=== PATIENT | female | born 1985 | race African-American/Black ===

== ENCOUNTER 2023-11-20 12:41 | Emergency (ER) | payer MEDICAID ==
[~2023-11-20] VITALS: Ht 170.2 cm; Wt 133.0 kg
[2023-11-20 13:07] VITALS: TEMP 97.9
[2023-11-20 14:40] LABS: BASOPHILS # (AUTO) 0.1 X10'3 (0-0.2); BASOPHILS % (AUTO) 0.8 % (0-1); EOSINOPHILS # (AUTO) 0.3 X10'3 (0-0.9); EOSINOPHILS % (AUTO) 3.6 % (0-6); HEMATOCRIT 29.9 % (35.0-45.0); HEMOGLOBIN 9.1 g/dl (12.0-16.0); LYMPHOCYTES # (AUTO) 2.4 X10'3 (1.1-4.8); LYMPHOCYTES % (AUTO) 29.1 % (21-51); MEAN CORPUSCULAR HEMOGLOBIN 20.5 PG (27.0-31.0); MEAN CORPUSCULAR HGB CONC 30.3 g/dL (33.0-36.5); MEAN CORPUSCULAR VOLUME 67.8 FL (78-98); MEAN PLATELET VOLUME 6.9 FL (7.4-10.4); MONOCYTES # (AUTO) 0.7 X10'3 (0-0.9); MONOCYTES % (AUTO) 8.7 % (2-12); NEUTROPHILS # (AUTO) 4.8 X10'3 (1.8-7.7); NEUTROPHILS % (AUTO) 57.8 % (42-75); PLATELET COUNT 373 X10'3 (140-440); RED BLOOD COUNT 4.42 X10'6 (4.20-5.60); RED CELL DISTRIBUTION WIDTH 18.5 % (11.5-14.5); WHITE BLOOD COUNT 8.4 X10'3 (4.5-11.0)
[2023-11-20 14:59] LABS: ANISOCYTOSIS 2+; ELLIPTOCYTES FEW; MICROCYTOSIS 2+; PLATELET ESTIMATE NORMAL
[2023-11-20 15:00] LABS: POLYCHROMASIA FEW; STOMATOCYTES FEW
[2023-11-20 15:14] LABS: ALANINE AMINOTRANSFERASE 58 U/L (12-78); ALBUMIN 3.3 G/DL (3.4-5.0); ALBUMIN/GLOBULIN RATIO 0.7 (1.1-1.5); ALKALINE PHOSPHATASE 78 IU/L (46-116); ANION GAP 9 (8-16); ASPARTATE AMINO TRANSFERASE 47 U/L (10-37); BILIRUBIN,TOTAL 0.5 MG/DL (0.1-1.0); BLOOD UREA NITROGEN 11 MG/DL (7-18); BUN/CREATININE RATIO 13.8 (10.0-20.0); CALCIUM 9.2 MG/DL (8.5-10.1); CHLORIDE 107 MMOL/L (99-107); GLUCOSE 114 MG/DL (70-104); SODIUM 143 MMOL/L (135-145); TOTAL CARBON DIOXIDE 27.5 MMOL/L (24-32); TOTAL PROTEIN 7.8 G/DL (6.4-8.2); eCRCL 95 ML/MIN; eGFR 81 ML/MIN
[2023-11-20 15:30] LABS: PRO BRAIN NATRIURETIC PEPTIDE < 30 PG/ML (0-125)
[2023-11-20 15:55] LABS: FREE T4 (FREE THYROXINE) 0.77 NG/DL (0.73-1.40); THYROID STIMULATING HORMONE 3.16 ulU/ml (0.34-4.50)
[2023-11-20] MEDS ORDERED: LEVO25TA2 PO (16:36)
[2023-11-20 17:07] VITALS: BP 138/91; PULSE 77; RESP 18; O2SAT 98
[2023-11-26] MEDS ORDERED: NO HOME MEDS (15:44)
[2023-11-29] MEDS ORDERED: FERR324T3 PO (10:11)
[2023-11-29] MEDS ORDERED: APIX5TAB3 PO (11:32)
== END 2023-11-20 17:10 | disposition home or self-care (01) ==
LOC: ER 12:42
DX: E03.9 Hypothyroidism, unspecified (principal)
CPT/HCPCS: 36415; 71045; 80053; 83735; 83880; 84439; 84443; 84484; 85008; 85025; 93005; 99285

== ENCOUNTER 2023-11-29 22:36 | Emergency (ER) | payer MEDICAID ==
[~2023-11-29] VITALS: Ht 170.2 cm; Wt 143.2 kg
[~2023-11-29 22:36] MED LIST: APIX5TAB3 PO; FERR324T3 PO; NO HOME MEDS
[2023-11-30 00:05] LABS: BASOPHILS % (AUTO) 0.5 % (0-1); EOSINOPHILS # (AUTO) 0.2 X10'3 (0-0.9); HEMATOCRIT 28.2 % (35.0-45.0); HEMOGLOBIN 8.7 g/dl (12.0-16.0); LYMPHOCYTES # (AUTO) 2.4 X10'3 (1.1-4.8); LYMPHOCYTES % (AUTO) 29.8 % (21-51); MEAN CORPUSCULAR HEMOGLOBIN 21.9 PG (27.0-31.0); MEAN CORPUSCULAR HGB CONC 30.9 g/dL (33.0-36.5); MEAN PLATELET VOLUME 7.6 FL (7.4-10.4); MONOCYTES # (AUTO) 0.6 X10'3 (0-0.9); NEUTROPHILS # (AUTO) 4.8 X10'3 (1.8-7.7); NEUTROPHILS % (AUTO) 59.7 % (42-75); PLATELET COUNT 328 X10'3 (140-440); RED BLOOD COUNT 3.97 X10'6 (4.20-5.60); RED CELL DISTRIBUTION WIDTH 19.6 % (11.5-14.5)
[2023-11-30 00:37] LABS: ALBUMIN 3.1 G/DL (3.4-5.0); ANION GAP 11 (8-16); BLOOD UREA NITROGEN 5 MG/DL (7-18); BUN/CREATININE RATIO 6.4 (10.0-20.0); CALCIUM 8.6 MG/DL (8.5-10.1); CHLORIDE 106 MMOL/L (99-107); CREATININE 0.78 MG/DL (0.40-0.90); GLUCOSE 92 MG/DL (70-104); POTASSIUM 3.9 MMOL/L (3.5-5.1); SODIUM 142 MMOL/L (135-145); TOTAL CARBON DIOXIDE 25.1 MMOL/L (24-32); eCRCL 97 ML/MIN; eGFR > 90 ML/MIN
[2023-11-30 00:45] LABS: PLATELET ESTIMATE NORMAL
[2023-11-30 00:46] LABS: ANISOCYTOSIS 2+
[2023-11-30 00:47] LABS: MICROCYTOSIS 1+
[2023-11-30 00:48] LABS: ELLIPTOCYTES 1+; HYPOCHROMASIA 1+
[2023-11-30 01:18] LABS: ETHANOL < 10 MG/DL (<10)
[2023-11-30 03:16] LABS: URINE HCG NEGATIVE (NEG)
[2023-11-30] MEDS: LORazepam 1 MG tablet PO ONE (03:17)
[2023-11-30 03:32] LABS: URINE AMPHETAMINE SCREEN NEGATIVE (Neg); URINE BARBITUATE SCREEN NEGATIVE (Neg); URINE BENZODIAZEPINES SCREEN NEGATIVE (Neg); URINE CANNABINOID SCREEN NEGATIVE (Neg); URINE COCAINE SCREEN NEGATIVE (Neg); URINE METHADONE SCREEN NEGATIVE (Neg); URINE OPIATE SCREEN NEGATIVE (Neg); URINE PHENCYCLIDINE SCREEN NEGATIVE (Neg)
[2023-11-30 03:59] LABS: BILIRUBIN,URINE NEGATIVE (Neg); CLARITY,URINE CLOUDY (Clear); COLOR,URINE YELLOW (Yellow); GLUCOSE, URINE NEGATIVE (Neg); KETONES,URINE NEGATIVE (Neg); LEUKOCYTE ESTERASE ,URINE NEGATIVE (Neg); NITRITES, URINE NEGATIVE (Neg); OCCULT BLOOD,URINE LARGE (Neg); PROTEIN,URINE NEGATIVE (Neg); UA COLLECTION TYPE NON-SPECIFIED; UROBILINOGEN,URINE 0.2 E.U/dL (0.2-1.0)
[2023-11-30 04:18] LABS: RBC,URINE TNTC /HPF (0-2); WBC,URINE 0-4 /HPF (0-4)
[2023-11-30 04:19] LABS: BACTERIA,URINE NONE SEEN /HPF (Neg); MUCUS STRANDS MODERATE /LPF (Neg); SQUAMOUS EPITHELIAL CELL,UR FEW /LPF (FEW)
[2023-11-30] MEDS ORDERED: FERR324T PO (14:28)
[2023-11-30] MEDS ORDERED: APIX5TAB3 PO (14:28)
[2023-11-30] MEDS ORDERED: FERR325T28 PO (15:08)
[2023-11-30] MEDS: apixaban 5mg tablet PO ONE (17:04)
[2023-11-30] MEDS: ferrous sulfate 325mg tablet PO ONE (17:04)
[2023-11-30] MEDS ORDERED: ferrous gluconate 324mg tablet PO SCH (20:00)
[2023-11-30] MEDS ORDERED: apixaban 5mg tablet PO SCH (20:00)
[2023-12-01 08:28] LABS: FREE T4 (FREE THYROXINE) 0.82 NG/DL (0.73-1.40)
[2023-12-01] MEDS: apixaban 5mg tablet PO SCH (08:32)
[2023-12-01] MEDS: ferrous sulfate 325mg tablet PO SCH (08:32)
[2023-12-01] MEDS ORDERED: APIX5TAB5 PO (15:04)
[2023-12-01] MEDS ORDERED: apixaban 5mg tablet PO SCH (15:05)
[2023-12-02 05:51] VITALS: BP 145/103; PULSE 81; TEMP 98.2; O2SAT 99
[2023-12-02 07:11] VITALS: RESP 16
[2023-12-02] MEDS ORDERED: FERR325T28 PO (08:50)
[2023-12-02] MEDS: apixaban 5mg tablet PO SCH (09:25)
== END 2023-12-02 13:53 | disposition home or self-care (01) ==
LOC: ER 22:37
DX: D53.9 Nutritional anemia, unspecified (principal); R45.851 Suicidal ideations; E03.9 Hypothyroidism, unspecified; Z98.890 Other specified postprocedural states; Z20.822 Contact with and (suspected) exposure to COVID-19; Z88.8 Allergy status to other drugs, medicaments and biological substances
CPT/HCPCS: 36415; 80048; 80305; 80320; 81001; 81025; 84439; 84443; 85008; 85025; 87811; 99285